=== PATIENT | male | born 1955 | race Caucasian/White ===

== ENCOUNTER 2017-03-16 00:54 | Inpatient (IN) | payer OTHER, BC ==
[2017-03-16] VITALS (10 sets, daily range): BP systolic 94–134; BP diastolic 65–84; PULSE 64–102; RESP 12–24; TEMP 97.6–98.8; O2SAT 91–99
[~2017-03-16] VITALS: Ht 170.2 cm; Wt 94.0 kg
[2017-03-16] MEDS ORDERED: ceFAZolin INJ 1,000 MG VIAL ONE (01:03)
[2017-03-16] MEDS ORDERED: DIPHTH/TETANUS/ACEL PERTUSSIS (BOOSTER) 0.5 ML VIAL/PFS IM ONE ×2 (01:03→01:23)
[2017-03-16] MEDS ORDERED: ceFAZolin 2 GM PREMIX 50 ML ONE (01:04)
[2017-03-16 01:22] LABS: AUTOMATED NEUTROPHIL # 10.3 TH/MM3 (1.8-7.7); BASOPHIL # 0.1 TH/MM3 (0-0.2); BASOPHIL % 0.7 % (0.0-2.0); EOSINOPHIL # 0.2 TH/MM3 (0-0.4); EOSINOPHIL % 1.5 % (0.0-4.0); HEMATOCRIT 43.7 % (39.0-51.0); HEMO FLAGS DIFF FINAL; LYMPHOCYTE # 2.9 TH/MM3 (1.0-4.8); MEAN CELL VOLUME 93.9 FL (80.0-100.0); MEAN CORPUSCULAR HEMOGLOBIN 30.9 PG (27.0-34.0); MEAN CORPUSCULAR HGB CONC 32.9 % (32.0-36.0); MONO % 6.2 % (0.0-8.0); NEUT % 71.6 % (16.0-70.0); PLATELET COUNT 267 TH/MM3 (150-450); RED BLOOD COUNT 4.65 MIL/MM3 (4.50-5.90); RED CELL DISTRIBUTION WIDTH 13.3 % (11.6-17.2); WHITE BLOOD COUNT 14.4 TH/MM3 (4.0-11.0)
[2017-03-16] MEDS ORDERED: ceFAZolin 2 GM PREMIX 50 ML IV STA (01:23)
[2017-03-16 01:25] LABS: I-STAT POTASSIUM 4.3 MMOL/L (3.5-4.9); I-STAT SODIUM 137 MMOL/L (138-146)
[2017-03-16] MEDS ORDERED: SODIUM CHLOR 0.9% 1000 ML INJ 1,000 ML IV ONE (01:30)
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
[2017-03-16 01:40] LABS: ALT (GPT) 118 U/L (12-78); ANION GAP 9 MEQ/L (5-15); AST (GOT) 145 U/L (15-37); BICARBONATE 23.7 MEQ/L (21.0-32.0); BLOOD UREA NITROGEN 20 MG/DL (7-18); CHLORIDE 103 MEQ/L (98-107); GLOMERULAR FILTRATION RATE 45 ML/MIN (>89); POTASSIUM 4.1 MEQ/L (3.5-5.1); SODIUM (NA) 136 MEQ/L (136-145)
[2017-03-16 01:43] LABS: ALKALINE PHOSPHATASE 60 U/L (45-117); TOTAL BILIRUBIN ADULT 0.4 MG/DL (0.2-1.0)
[2017-03-16 01:44] LABS: ALCOHOL 242 MG/DL (0-5)
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
[2017-03-16] MEDS ORDERED: ENALAPRILAT 1.25 MG/ML VIAL IV PUSH PRN (01:45)
[2017-03-16] MEDS ORDERED: ONDANSETRON HCL 4 MG/2 ML VIAL IV PUSH PRN ×2 (01:45→02:30)
[2017-03-16] MEDS ORDERED: SODIUM CHLORIDE 0.9% FLUSH 10 ML FLUSH IV FLUSH PRN (01:45)
[2017-03-16] MEDS ORDERED: ACETAMINOPHEN/HYDROcodone 325 MG/5 MG TAB PO PRN (01:45)
[2017-03-16] MEDS ORDERED: CHLORHEXIDINE GLUCONATE 2 % 1 PACK (2 CLOTHS) TOP PRN ×2 (01:45→02:30)
[2017-03-16] MEDS ORDERED: MISCELLANEOUS NURSING INFORMATION XX SCH ×2 (01:45→02:30)
[2017-03-16 01:46] LABS: APTT (PATIENT) 20.1 SEC (24.3-30.1); PROTHROMBIN TIME - PATIENT 10.9 SEC (9.8-11.6)
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
[2017-03-16] MEDS ORDERED: SODIUM CHLOR 0.9% 1000 ML INJ 1,000 ML IV SCH (02:00)
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
[2017-03-16] MEDS: SODIUM CHLOR 0.9% 1000 ML INJ 1,000 ML IV SCH ×2 (02:27→14:22)
[2017-03-16] MEDS ORDERED: SENNOSIDES 8.6 MG TAB PO PRN (02:30)
[2017-03-16] MEDS ORDERED: ACETAMINOPHEN 325 MG TAB PO PRN (02:30)
[2017-03-16] MEDS ORDERED: LACTULOSE SYRUP 20 GM/30 ML CUP PO PRN (02:30)
[2017-03-16] MEDS ORDERED: MORPHINE SULFATE 4 MG/ML INJ IV PUSH ONE (02:30)
[2017-03-16] MEDS ORDERED: MORPHINE SULFATE 4 MG/ML INJ IM ONE (02:30)
[2017-03-16] MEDS ORDERED: MAGNESIUM HYDROXIDE SUSP 30 ML CUP PO PRN (02:30)
[2017-03-16] MEDS: HYDROmorphone HCL PF 1 MG/ML VIAL IVP PRN (02:30)
[2017-03-16] MEDS ORDERED: BISACODYL 10 MG SUPP RECTAL PRN (02:30)
[2017-03-16] MEDS ORDERED: SODIUM CHLORIDE 0.9% FLUSH 10 ML FLUSH PRN (02:30)
[2017-03-16] MEDS ORDERED: LORazepam 2 MG/ML VIAL IV PUSH PRN ×4 (02:45)
[2017-03-16] MEDS ORDERED: LORazepam 1 MG TAB PO PRN (02:45)
[2017-03-16] MEDS ORDERED: FLUMAZENIL 0.5 MG/5 ML VIAL IV PUSH PRN (02:45)
[2017-03-16 03:17] LABS: CKMB 7.5 NG/ML (0.5-3.6)
[2017-03-16] MEDS ORDERED: CHLORHEXIDINE GLUCONATE 2 % 1 PACK (2 CLOTHS) TOP SCH (04:00)
[2017-03-16] MEDS: CHLORHEXIDINE GLUCONATE 2 % 1 PACK (2 CLOTHS) TOP SCH (04:00)
[2017-03-16] MEDS: MORPHINE SULFATE 4 MG/ML INJ IV PUSH PRN ×4 (04:12→23:09)
[2017-03-16] MEDS ORDERED: MULTIVITAMIN INJ 10 ML, THIAMINE INJ 100 MG, FOLIC ACID INJ 1 MG in SODIUM CHLORID 0.9%... IV SCH (04:45)
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
[2017-03-16] MEDS: MULTIVITAMIN INJ 10 ML, THIAMINE INJ 100 MG, FOLIC ACID INJ 1 MG in SODIUM CHLORID 0.9%... IV SCH (06:15)
[2017-03-16] MEDS: METHOCARBAMOL 500 MG TAB PO SCH ×3 (07:00→20:43)
[2017-03-16] MEDS: FAMOTIDINE 20 MG/2 ML VIAL IV PUSH SCH ×2 (08:29→20:42)
[2017-03-16] MEDS: LIDOCAINE HCL 5% PATCH T-DERMAL SCH (08:32)
[2017-03-16] MEDS: ACETAMINOPHEN 1000 MG/100 ML VIAL IV SCH ×3 (08:32→20:51)
[2017-03-16] MEDS: SODIUM CHLORIDE 0.9% FLUSH 10 ML FLUSH SCH ×2 (08:58→20:42)
[2017-03-16] MEDS: PANTOPRAZOLE SODIUM 40 MG VIAL IVP SCH (09:00)
[2017-03-16] MEDS: DOCUSATE SODIUM 50 MG/SENNA 8.6 MG TAB PO SCH ×2 (09:00→20:43)
[2017-03-16] MEDS: BACITRACIN TOP OINT 15 GM TUBE TOPICAL SCH ×2 (09:45→23:19)
[2017-03-16] MEDS: ACETAMINOPHEN/HYDROcodone 325 MG/5 MG TAB PO PRN ×2 (12:26→20:43)
[2017-03-16] MEDS: LORazepam 2 MG TAB PO PRN ×2 (12:26→12:27)
[2017-03-16] MEDS ORDERED: IOHEXOL 350 MG/ML 10 ML VIAL (for RAD DIAG) IVCONTRAST ONE ×2 (13:31→22:56)
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
--- NOTE | 2017-03-16 14:32 | EKG ---
Date Performed: 03/16/2017 Time Performed: 10:21:13 PTAGE: 61 years EKG: Sinus rhythm RIGHT BUNDLE BRANCH BLOCK ABNORMAL ECG NO PREVIOUS TRACING DOCTOR: Daron Nunes Interpretating Date/Time 03/16/2017 14:31:24
[2017-03-16] MEDS: REMOVE OLD LIDOCAINE PATCH T-DERMAL SCH (20:51)
--- NOTE | 2017-03-16 23:10 | RADRPT ---
EXAM DATE/TIME: 03/16/2017 22:46 [facility] COMPARISON: CT ABDOMEN & PELVIS W CONTRAST, March 16, 2017, 1:15. INDICATIONS : Evaluate for ruptured bladder. IV CONTRAST: 30 cc Omnipaque 350 (iohexol) IV ORAL CONTRAST: No oral contrast ingested. RADIATION DOSE: 26.62 CTDIvol (mGy) ; Patient body habitus MEDICAL HISTORY : Cardiovascular disease. Hypertension. SURGICAL HISTORY : None. ENCOUNTER: Subsequent ACUITY: 1 day PAIN SCALE: 0/10 LOCATION: pelvis TECHNIQUE: Volumetric scanning of the pelvis was performed. Using automated exposure control and adjustment of t he mA and/or kV according to patient size, radiation dose was kept as low as reasonably achievable to obtain optimal diagnostic quality images. DICOM format image data is available electronically for review and comparison. FINDINGS: There is an indwelling Fodr. Iodinated contrast was administered into the bladder retrograde. There is a anterior/superior perforation noted of the urinary bladder, slightly right of midline. Most of t he contrast leaks retroperitoneal but a small amount is also seen intraperitoneal. CONCLUSION: Focal rupture anteriorly/superiorly of the urinary bladder with intraperitoneal and retroperitoneal l gardenia. Aleksandr Garcia MD on March 16, 2017 at 23:03 Board Certified Radiologist. This report was verified electronically.
[2017-03-17] VITALS (11 sets, daily range): BP systolic 132–153; BP diastolic 70–86; PULSE 88–107; RESP 18–28; TEMP 98.5–98.9; O2SAT 93–100
[2017-03-17] MEDS: ACETAMINOPHEN 1000 MG/100 ML VIAL IV SCH (01:00)
[2017-03-17] MEDS: SODIUM CHLOR 0.9% 1000 ML INJ 1,000 ML IV SCH ×2 (02:17→14:12)
[2017-03-17] MEDS: CHLORHEXIDINE GLUCONATE 2 % 1 PACK (2 CLOTHS) TOP SCH (04:00)
[2017-03-17 05:27] LABS: AUTOMATED NEUTROPHIL # 6.8 TH/MM3 (1.8-7.7); BASOPHIL % 0.5 % (0.0-2.0); EOSINOPHIL % 0.1 % (0.0-4.0); HEMATOCRIT 32.4 % (39.0-51.0); HEMO FLAGS DIFF FINAL; LYMPH % 13.7 % (9.0-44.0); LYMPHOCYTE # 1.3 TH/MM3 (1.0-4.8); MEAN CELL VOLUME 93.4 FL (80.0-100.0); MEAN CORPUSCULAR HEMOGLOBIN 32.4 PG (27.0-34.0); MEAN CORPUSCULAR HGB CONC 34.6 % (32.0-36.0); MONO % 12.5 % (0.0-8.0); NEUT % 73.2 % (16.0-70.0); PLATELET COUNT 163 TH/MM3 (150-450); RED BLOOD COUNT 3.47 MIL/MM3 (4.50-5.90); RED CELL DISTRIBUTION WIDTH 13.1 % (11.6-17.2); WHITE BLOOD COUNT 9.3 TH/MM3 (4.0-11.0)
[2017-03-17 05:31] LABS: PROTHROMBIN TIME - PATIENT 10.5 SEC (9.8-11.6)
[2017-03-17] MEDS: MULTIVITAMIN INJ 10 ML, THIAMINE INJ 100 MG, FOLIC ACID INJ 1 MG in SODIUM CHLORID 0.9%... IV SCH (05:31)
[2017-03-17] MEDS: METHOCARBAMOL 500 MG TAB PO SCH ×3 (05:33→21:18)
[2017-03-17] MEDS: ACETAMINOPHEN/HYDROcodone 325 MG/5 MG TAB PO PRN (05:34)
[2017-03-17 05:55] LABS: ALKALINE PHOSPHATASE 45 U/L (45-117); ALT (GPT) 80 U/L (12-78); ANION GAP 5 MEQ/L (5-15); AST (GOT) 113 U/L (15-37); BICARBONATE 24.3 MEQ/L (21.0-32.0); BLOOD UREA NITROGEN 21 MG/DL (7-18); CHLORIDE 106 MEQ/L (98-107); GLOMERULAR FILTRATION RATE 73 ML/MIN (>89); MAGNESIUM 2.4 MG/DL (1.5-2.5); POTASSIUM 4.7 MEQ/L (3.5-5.1); SODIUM (NA) 135 MEQ/L (136-145); TOTAL BILIRUBIN ADULT 1.3 MG/DL (0.2-1.0)
--- NOTE | 2017-03-17 06:52 | RADRPT ---
EXAM DATE/TIME: 03/17/2017 06:05 [facility] COMPARISON: CHEST SINGLE AP, March 16, 2017, 4:04. INDICATIONS : Short of breath. MEDICAL HISTORY : None. SURGICAL HISTORY : None. ENCOUNTER: Subsequent ACUITY: 3 days PAIN SCORE: Non-responsive. LOCATION: Bilateral chest FINDINGS: A single view of the chest demonstrates basilar and dependent atelectasis in the lungs. Small effusio ns. Cardiomegaly. Tortuous aorta. CONCLUSION: 1. Slight improvement in right-sided airspace disease since March 16. Small effusions. Marcos Bhakta MD on March 17, 2017 at 6:50 Board Certified Radiologist. This report was verified electronically.
[2017-03-17] MEDS: PANTOPRAZOLE SODIUM 40 MG VIAL IVP SCH (08:25)
[2017-03-17] MEDS: FAMOTIDINE 20 MG/2 ML VIAL IV PUSH SCH (08:25)
[2017-03-17] MEDS: LIDOCAINE HCL 5% PATCH T-DERMAL SCH (08:25)
[2017-03-17] MEDS: SODIUM CHLORIDE 0.9% FLUSH 10 ML FLUSH SCH ×2 (08:25→21:00)
[2017-03-17] MEDS: BACITRACIN TOP OINT 15 GM TUBE TOPICAL SCH ×2 (08:25→21:00)
[2017-03-17] MEDS: DOCUSATE SODIUM 50 MG/SENNA 8.6 MG TAB PO SCH ×2 (08:25→21:18)
[2017-03-17] MEDS: REMOVE OLD LIDOCAINE PATCH T-DERMAL SCH (08:30)
[2017-03-17] MEDS: MORPHINE SULFATE 4 MG/ML INJ IV PUSH PRN (09:21)
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
[2017-03-17] MEDS ORDERED: diphenhydrAMINE HCL 50 MG/ML VIAL IV PUSH PRN (09:45)
[2017-03-17] MEDS ORDERED: NALOXONE HCL 0.4 MG/ML AMP IV PUSH PRN (09:45)
[2017-03-17] MEDS: DULoxetine HCl DR 30 MG CAP PO SCH ×2 (10:38→21:18)
[2017-03-17] MEDS: MAGNESIUM SULFATE 1 GM PREMIX 100 ML IV SCH ×2 (10:38→12:50)
[2017-03-17] MEDS: METOPROLOL TARTRATE 50 MG TAB PO SCH ×2 (10:38→21:18)
[2017-03-17] MEDS: HYDROmorphone HCL PCA 6 MG/30 ML IV SCH (11:17)
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
[2017-03-17] MEDS: PCA - TOTAL MG DILAUDID DELIVERED PER SHIFT OTHER SCH (18:00)
[2017-03-17] MEDS: ENOXAPARIN SODIUM 30 MG/0.3 ML SYRINGE SQ SCH (21:19)
[2017-03-18] VITALS (11 sets, daily range): BP systolic 129–157; BP diastolic 78–92; PULSE 75–106; RESP 17–25; TEMP 97.6–98.7; O2SAT 93–97
[2017-03-18] MEDS: SODIUM CHLOR 0.9% 1000 ML INJ 1,000 ML IV SCH ×2 (02:07→10:47)
[2017-03-18] MEDS: CHLORHEXIDINE GLUCONATE 2 % 1 PACK (2 CLOTHS) TOP SCH (04:00)
[2017-03-18] MEDS: METHOCARBAMOL 500 MG TAB PO SCH ×3 (05:20→20:28)
[2017-03-18 05:30] LABS: AUTOMATED NEUTROPHIL # 7.3 TH/MM3 (1.8-7.7); BASOPHIL % 0.5 % (0.0-2.0); EOSINOPHIL % 0.3 % (0.0-4.0); HEMATOCRIT 32.1 % (39.0-51.0); HEMO FLAGS DIFF FINAL; LYMPH % 9.3 % (9.0-44.0); LYMPHOCYTE # 0.8 TH/MM3 (1.0-4.8); MEAN CELL VOLUME 94.8 FL (80.0-100.0); MEAN CORPUSCULAR HEMOGLOBIN 31.7 PG (27.0-34.0); MEAN CORPUSCULAR HGB CONC 33.4 % (32.0-36.0); MONO % 9.6 % (0.0-8.0); NEUT % 80.3 % (16.0-70.0); PLATELET COUNT 157 TH/MM3 (150-450); RED BLOOD COUNT 3.38 MIL/MM3 (4.50-5.90); RED CELL DISTRIBUTION WIDTH 12.9 % (11.6-17.2)
[2017-03-18 05:34] LABS: ANION GAP 7 MEQ/L (5-15); AST (GOT) 81 U/L (15-37); BICARBONATE 24.3 MEQ/L (21.0-32.0); BLOOD UREA NITROGEN 19 MG/DL (7-18); CHLORIDE 105 MEQ/L (98-107); GLOMERULAR FILTRATION RATE 100 ML/MIN (>89); MAGNESIUM 2.3 MG/DL (1.5-2.5); POTASSIUM 4.5 MEQ/L (3.5-5.1); SODIUM (NA) 136 MEQ/L (136-145)
[2017-03-18 05:35] LABS: ALT (GPT) 68 U/L (12-78)
[2017-03-18 05:37] LABS: ALKALINE PHOSPHATASE 43 U/L (45-117); TOTAL BILIRUBIN ADULT 0.8 MG/DL (0.2-1.0)
[2017-03-18] MEDS: PCA - TOTAL MG DILAUDID DELIVERED PER SHIFT OTHER SCH ×2 (06:00→18:00)
--- NOTE | 2017-03-18 06:21 | RADRPT ---
EXAM DATE/TIME: 03/18/2017 05:20 [facility] COMPARISON: CHEST SINGLE AP, March 17, 2017, 6:05. INDICATIONS : Short of breath. MEDICAL HISTORY : None. SURGICAL HISTORY : None. ENCOUNTER: Subsequent ACUITY: 3 days PAIN SCORE: Non-responsive. LOCATION: Bilateral chest FINDINGS: A single view of the chest demonstrates cardiomegaly. Small right effusion. Basilar airspace disease, right greater than left. No pneumothorax. CONCLUSION: 1. Cardiomegaly. Slight increase in basilar airspace disease and [facility] Marcos Bhakta MD on March 18, 2017 at 6:19 Board Certified Radiologist. This report was verified electronically.
[2017-03-18] MEDS: MULTIVITAMIN INJ 10 ML, THIAMINE INJ 100 MG, FOLIC ACID INJ 1 MG in SODIUM CHLORID 0.9%... IV SCH (06:38)
[2017-03-18] MEDS: LIDOCAINE HCL 5% PATCH T-DERMAL SCH (08:17)
[2017-03-18] MEDS: PANTOPRAZOLE SODIUM 40 MG VIAL IVP SCH (08:17)
[2017-03-18] MEDS: METOPROLOL TARTRATE 50 MG TAB PO SCH ×2 (08:17→20:28)
[2017-03-18] MEDS: DOCUSATE SODIUM 50 MG/SENNA 8.6 MG TAB PO SCH ×2 (08:17→20:28)
[2017-03-18] MEDS: ENOXAPARIN SODIUM 30 MG/0.3 ML SYRINGE SQ SCH ×2 (08:17→20:28)
[2017-03-18] MEDS: BACITRACIN TOP OINT 15 GM TUBE TOPICAL SCH ×2 (08:17→21:00)
[2017-03-18] MEDS: DULoxetine HCl DR 30 MG CAP PO SCH ×2 (08:17→20:28)
[2017-03-18] MEDS: SODIUM CHLORIDE 0.9% FLUSH 10 ML FLUSH SCH ×2 (08:18→20:28)
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
[2017-03-18] MEDS: HYDROmorphone HCL PCA 6 MG/30 ML IV SCH (18:30)
[2017-03-18] MEDS: REMOVE OLD LIDOCAINE PATCH T-DERMAL SCH (21:00)
[2017-03-19] VITALS (11 sets, daily range): BP systolic 124–150; BP diastolic 77–88; PULSE 90–102; RESP 18–26; TEMP 97.9–98.8; O2SAT 94–98
[2017-03-19] MEDS: CHLORHEXIDINE GLUCONATE 2 % 1 PACK (2 CLOTHS) TOP SCH (04:00)
--- NOTE | 2017-03-19 05:36 | RADRPT ---
EXAM DATE/TIME: 03/19/2017 03:52 [facility] COMPARISON: CHEST SINGLE AP, March 18, 2017, 5:20. INDICATIONS : Follow up rib fracture. MEDICAL HISTORY : None. SURGICAL HISTORY : None. ENCOUNTER: Subsequent ACUITY: 4 - 6 days PAIN SCORE: 0/10 LOCATION: Bilateral chest FINDINGS: A single view of the chest demonstrates basilar airspace disease, right greater the left with effusio ns, right greater than left. Findings similar to March 18. Cardiomegaly. Tortuous aorta. No pneum othorax. CONCLUSION: Basilar airspace disease and pleural effusions, right greater than left similar to March 18. Marcos Bhakta MD on March 19, 2017 at 5:34 Board Certified Radiologist. This report was verified electronically.
[2017-03-19] MEDS: METHOCARBAMOL 500 MG TAB PO SCH ×3 (05:37→22:02)
[2017-03-19] MEDS: PCA - TOTAL MG DILAUDID DELIVERED PER SHIFT OTHER SCH ×3 (06:00→22:00)
[2017-03-19 06:31] LABS: AUTOMATED NEUTROPHIL # 7.8 TH/MM3 (1.8-7.7); BASOPHIL % 0.2 % (0.0-2.0); EOSINOPHIL % 0.1 % (0.0-4.0); HEMATOCRIT 27.8 % (39.0-51.0); HEMO FLAGS DIFF FINAL; LYMPH % 6.4 % (9.0-44.0); LYMPHOCYTE # 0.6 TH/MM3 (1.0-4.8); MEAN CELL VOLUME 92.9 FL (80.0-100.0); MEAN CORPUSCULAR HEMOGLOBIN 32.8 PG (27.0-34.0); MEAN CORPUSCULAR HGB CONC 35.3 % (32.0-36.0); MONO % 9.1 % (0.0-8.0); NEUT % 84.2 % (16.0-70.0); PLATELET COUNT 187 TH/MM3 (150-450); RED BLOOD COUNT 2.99 MIL/MM3 (4.50-5.90); RED CELL DISTRIBUTION WIDTH 12.7 % (11.6-17.2); WHITE BLOOD COUNT 9.2 TH/MM3 (4.0-11.0)
[2017-03-19 07:03] LABS: ALT (GPT) 63 U/L (12-78); ANION GAP 5 MEQ/L (5-15); AST (GOT) 74 U/L (15-37); BICARBONATE 25.7 MEQ/L (21.0-32.0); BLOOD UREA NITROGEN 25 MG/DL (7-18); CHLORIDE 105 MEQ/L (98-107); GLOMERULAR FILTRATION RATE 119 ML/MIN (>89); POTASSIUM 4.4 MEQ/L (3.5-5.1); SODIUM (NA) 136 MEQ/L (136-145)
[2017-03-19 07:06] LABS: ALKALINE PHOSPHATASE 41 U/L (45-117)
[2017-03-19] MEDS: SODIUM CHLORIDE 0.9% FLUSH 10 ML FLUSH SCH ×2 (08:21→21:00)
[2017-03-19] MEDS: DOCUSATE SODIUM 50 MG/SENNA 8.6 MG TAB PO SCH ×2 (08:22→22:02)
[2017-03-19] MEDS: METOPROLOL TARTRATE 50 MG TAB PO SCH ×3 (08:22→22:02)
[2017-03-19] MEDS: DULoxetine HCl DR 30 MG CAP PO SCH ×2 (08:22→22:02)
[2017-03-19] MEDS: PANTOPRAZOLE SODIUM 40 MG VIAL IVP SCH (08:22)
[2017-03-19] MEDS: ENOXAPARIN SODIUM 30 MG/0.3 ML SYRINGE SQ SCH ×2 (08:23→22:02)
[2017-03-19] MEDS: BACITRACIN TOP OINT 15 GM TUBE TOPICAL SCH ×2 (08:23→21:00)
[2017-03-19] MEDS: LACTULOSE SYRUP 20 GM/30 ML CUP PO SCH (09:00)
[2017-03-19] MEDS: LIDOCAINE HCL 5% PATCH T-DERMAL SCH (09:31)
[2017-03-19] MEDS: MAGNESIUM HYDROXIDE SUSP 30 ML CUP PO SCH ×2 (09:31→22:02)
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
[2017-03-19] MEDS: chlordiazePOXIDE 25 MG CAP PO PRN (13:44)
[2017-03-19] MEDS: SODIUM CHLOR 0.9% 1000 ML INJ 1,000 ML IV SCH (19:11)
--- NOTE | 2017-03-19 19:30 | RADRPT ---
EXAM DATE/TIME: 03/19/2017 16:32 [facility] COMPARISON: No previous studies available for comparison. INDICATIONS : Bruit. MEDICAL HISTORY : Hypertension. Aortic valve stenosis. SURGICAL HISTORY : None. ENCOUNTER: Initial ACUITY: 1 day PAIN SCORE: 0/10 LOCATION: Bilateral neck PEAK SYSTOLIC VELOCITIES (cm/sec): ICA/CCA RATIO: Right: 1.7 Left: 0.9 ICA: Right: 95 Left: 93 CCA: Right: 56 Left: 99 ECA: Right: 107 Left: 103 VERTEBRAL: Right: 55 antegrade Left: 40 antegrade Elevated flow velocities and ICA/CCA ratios have been found to correlate with increased degrees of vessel stenosis, calculated as percentage of diameter relative to a normal segment of distal ICA/CCA FINDINGS: RIGHT CAROTID: No significant stenosis is visualized. The waveforms are within normal limits. LEFT CAROTID: No significant stenosis is visualized. The waveforms are within normal limits. VERTEBRAL ARTERIES: Antegrade flow is seen in both vertebral arteries. CONCLUSION: Normal hemodynamic profile both carotids. Montana Garcia MD on March 19, 2017 at 19:28 Board Certified Radiologist. This report was verified electronically.
[2017-03-19] MEDS: REMOVE OLD LIDOCAINE PATCH T-DERMAL SCH (21:00)
[2017-03-20] VITALS (13 sets, daily range): BP systolic 115–138; BP diastolic 73–89; PULSE 80–114; RESP 19–29; TEMP 98.2–99; O2SAT 93–97
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
[2017-03-20] MEDS: METHOCARBAMOL 500 MG TAB PO SCH ×3 (06:00→21:29)
[2017-03-20] MEDS: PCA - TOTAL MG DILAUDID DELIVERED PER SHIFT OTHER SCH (06:00)
[2017-03-20] MEDS: METOPROLOL TARTRATE 50 MG TAB PO SCH ×3 (06:00→21:29)
[2017-03-20] MEDS ORDERED: BISACODYL EC 5 MG TABEC PO ONE (08:15)
[2017-03-20] MEDS ORDERED: BISACODYL 10 MG SUPP RECTAL ONE (08:15)
[2017-03-20] MEDS: ENOXAPARIN SODIUM 30 MG/0.3 ML SYRINGE SQ SCH ×2 (08:16→20:36)
[2017-03-20] MEDS: PANTOPRAZOLE SODIUM 40 MG VIAL IVP SCH (08:16)
[2017-03-20] MEDS: MAGNESIUM HYDROXIDE SUSP 30 ML CUP PO SCH ×2 (08:17→20:36)
[2017-03-20] MEDS: DOCUSATE SODIUM 50 MG/SENNA 8.6 MG TAB PO SCH ×2 (08:17→20:36)
[2017-03-20] MEDS: DULoxetine HCl DR 30 MG CAP PO SCH ×2 (08:17→21:29)
[2017-03-20] MEDS: LACTULOSE SYRUP 20 GM/30 ML CUP PO SCH (08:17)
[2017-03-20] MEDS: LIDOCAINE HCL 5% PATCH T-DERMAL SCH (08:18)
[2017-03-20] MEDS: BACITRACIN TOP OINT 15 GM TUBE TOPICAL SCH ×2 (09:00→20:40)
[2017-03-20] MEDS: SODIUM CHLORIDE 0.9% FLUSH 10 ML FLUSH SCH ×2 (09:00→20:35)
[2017-03-20 09:01] LABS: AUTOMATED NEUTROPHIL # 6.5 TH/MM3 (1.8-7.7); BASOPHIL % 0.4 % (0.0-2.0); EOSINOPHIL # 0.1 TH/MM3 (0-0.4); EOSINOPHIL % 1.1 % (0.0-4.0); HEMO FLAGS DIFF FINAL; LYMPH % 12.9 % (9.0-44.0); LYMPHOCYTE # 1.1 TH/MM3 (1.0-4.8); MEAN CELL VOLUME 94.2 FL (80.0-100.0); MEAN CORPUSCULAR HEMOGLOBIN 32.6 PG (27.0-34.0); MEAN CORPUSCULAR HGB CONC 34.6 % (32.0-36.0); MONO % 12.1 % (0.0-8.0); NEUT % 73.5 % (16.0-70.0); PLATELET COUNT 204 TH/MM3 (150-450); RED BLOOD COUNT 2.87 MIL/MM3 (4.50-5.90); WHITE BLOOD COUNT 8.8 TH/MM3 (4.0-11.0)
[2017-03-20 09:16] LABS: ANION GAP 6 MEQ/L (5-15); AST (GOT) 74 U/L (15-37); BICARBONATE 27.3 MEQ/L (21.0-32.0); BLOOD UREA NITROGEN 25 MG/DL (7-18); CHLORIDE 103 MEQ/L (98-107); GLOMERULAR FILTRATION RATE 98 ML/MIN (>89); POTASSIUM 4.5 MEQ/L (3.5-5.1); SODIUM (NA) 136 MEQ/L (136-145)
[2017-03-20 09:17] LABS: ALT (GPT) 63 U/L (12-78)
[2017-03-20 09:19] LABS: ALKALINE PHOSPHATASE 40 U/L (45-117); TOTAL BILIRUBIN ADULT 1.1 MG/DL (0.2-1.0)
[2017-03-20] MEDS ORDERED: ACETAMINOPHEN/HYDROcodone 325 MG/10 MG TAB PO PRN (10:15)
[2017-03-20] MEDS ORDERED: IOHEXOL 350 MG/ML 10 ML VIAL (for RAD DIAG) IVCONTRAST ONE (12:04)
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
[2017-03-20] MEDS: ACETAMINOPHEN/HYDROcodone 325 MG/5 MG TAB PO PRN (13:00)
[2017-03-20] MEDS ORDERED: LIDOCAINE HCL 1% 50 ML VIAL ONE (13:15)
[2017-03-20] MEDS: HYDROmorphone HCL PF 1 MG/ML VIAL IVP PRN (13:57)
[2017-03-20] MEDS ORDERED: METOPROLOL TARTRATE 5 MG/5 ML VIAL ONE (14:14)
[2017-03-20] MEDS ORDERED: METOPROLOL TARTRATE 5 MG/5 ML VIAL IV PUSH STA (14:20)
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
--- NOTE | 2017-03-20 15:06 | RADRPT ---
EXAM DATE/TIME: 03/20/2017 13:53 [facility] COMPARISON: CHEST SINGLE AP, March 20, 2017, 3:47. INDICATIONS : Evaluate for pneumothorax, post chest tube placement. MEDICAL HISTORY : Cardiovascular disease. Hypertension SURGICAL HISTORY : None. ENCOUNTER: Subsequent ACUITY: 1 day PAIN SCORE: 5/10 LOCATION: Right chest FINDINGS: A single view of the chest demonstrates interval placement of right-sided chest tube with marked impr ovement in the appearance of the right thoracic cavity. Large left pleural effusion. Small infiltrate or effusion remains on the left. Aorta is tortuous. Remains enlarged.. Osseous structures are intac t. CONCLUSION: New chest tube on the right with a much smaller pleural effusion. No pneumothorax. Van Johansen MD on March 20, 2017 at 15:03 Board Certified Radiologist. This report was verified electronically.
[2017-03-20] MEDS ORDERED: METOPROLOL TARTRATE 5 MG/5 ML VIAL IV PUSH ONE (15:15)
[2017-03-20] MEDS ORDERED: HYDROmorphone HCL PF 1 MG/ML VIAL IV ONE (16:00)
[2017-03-20] MEDS: RESP: ALBUTEROL 2.5 MG/IPRATROPIUM 0.5 MG NEB (PRN) INH ×2 (16:41→21:01)
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
[2017-03-20] MEDS: CHLORHEXIDINE GLUCONATE 2 % 1 PACK (2 CLOTHS) TOP SCH (20:35)
[2017-03-20] MEDS: REMOVE OLD LIDOCAINE PATCH T-DERMAL SCH (21:00)
[2017-03-20] MEDS: SODIUM CHLOR 0.9% 1000 ML INJ 1,000 ML IV SCH (21:06)
[2017-03-20 21:47] LABS: HEMATOCRIT 27.6 % (39.0-51.0); REVIEW FLAG FINAL
[2017-03-21] VITALS (12 sets, daily range): BP systolic 107–120; BP diastolic 67–81; PULSE 81–110; RESP 19–27; TEMP 98.1–99.2; O2SAT 94–100
[2017-03-21] MEDS: METOPROLOL TARTRATE 50 MG TAB PO SCH ×2 (05:50→13:54)
[2017-03-21] MEDS: METHOCARBAMOL 500 MG TAB PO SCH ×3 (05:50→21:28)
[2017-03-21 05:59] LABS: ALT (GPT) 59 U/L (12-78); ANION GAP 5 MEQ/L (5-15); AST (GOT) 54 U/L (15-37); BICARBONATE 27.1 MEQ/L (21.0-32.0); BLOOD UREA NITROGEN 24 MG/DL (7-18); CHLORIDE 103 MEQ/L (98-107); GLOMERULAR FILTRATION RATE 129 ML/MIN (>89); POTASSIUM 4.5 MEQ/L (3.5-5.1); SODIUM (NA) 135 MEQ/L (136-145)
[2017-03-21 06:01] LABS: ALKALINE PHOSPHATASE 41 U/L (45-117); TOTAL BILIRUBIN ADULT 1.1 MG/DL (0.2-1.0)
[2017-03-21 06:20] LABS: AUTOMATED NEUTROPHIL # 5.9 TH/MM3 (1.8-7.7); BASOPHIL % 0.4 % (0.0-2.0); EOSINOPHIL # 0.1 TH/MM3 (0-0.4); EOSINOPHIL % 1.1 % (0.0-4.0); HEMATOCRIT 27.4 % (39.0-51.0); HEMO FLAGS DIFF FINAL; LYMPH % 13.1 % (9.0-44.0); LYMPHOCYTE # 1.1 TH/MM3 (1.0-4.8); MEAN CELL VOLUME 93.6 FL (80.0-100.0); MEAN CORPUSCULAR HEMOGLOBIN 31.7 PG (27.0-34.0); MEAN CORPUSCULAR HGB CONC 33.9 % (32.0-36.0); NEUT % 72.4 % (16.0-70.0); PLATELET COUNT 214 TH/MM3 (150-450); RED BLOOD COUNT 2.92 MIL/MM3 (4.50-5.90); RED CELL DISTRIBUTION WIDTH 13.2 % (11.6-17.2); WHITE BLOOD COUNT 8.1 TH/MM3 (4.0-11.0)
--- NOTE | 2017-03-21 06:25 | RADRPT ---
EXAM DATE/TIME: 03/21/2017 05:09 [facility] COMPARISON: CHEST SINGLE AP, March 20, 2017, 13:53. INDICATIONS : Short of breath. MEDICAL HISTORY : Cardiovascular disease. Hypertension SURGICAL HISTORY : None. ENCOUNTER: Subsequent ACUITY: 4 - 6 days PAIN SCORE: 0/10 LOCATION: Bilateral chest FINDINGS: Trace bibasilar consolidation present, both sides considerably improved in the interim. A small left pleural effusion probably persists. Right chest tube remains in place. I don't see a pneumothorax. Mild cardiomegaly is stable. CONCLUSION: Decreasing bibasilar consolidation, now very mild. Right chest tube remains in place. No pneumothorax . Aleksandr Garcia MD on March 21, 2017 at 6:23 Board Certified Radiologist. This report was verified electronically.
[2017-03-21] MEDS: LACTULOSE SYRUP 20 GM/30 ML CUP PO SCH (09:00)
[2017-03-21] MEDS: LIDOCAINE HCL 5% PATCH T-DERMAL SCH (09:14)
[2017-03-21] MEDS: REMOVE OLD LIDOCAINE PATCH T-DERMAL SCH (09:14)
[2017-03-21] MEDS ORDERED: BISACODYL EC 5 MG TABEC PO ONE (09:15)
[2017-03-21] MEDS ORDERED: BISACODYL 10 MG SUPP RECTAL ONE (09:15)
[2017-03-21] MEDS: ACETAMINOPHEN/HYDROcodone 325 MG/5 MG TAB PO PRN (09:24)
[2017-03-21] MEDS: ENOXAPARIN SODIUM 30 MG/0.3 ML SYRINGE SQ SCH ×2 (09:26→21:28)
[2017-03-21] MEDS: PANTOPRAZOLE SODIUM 40 MG VIAL IVP SCH (09:27)
[2017-03-21] MEDS: DULoxetine HCl DR 30 MG CAP PO SCH ×2 (09:27→21:28)
[2017-03-21] MEDS: MAGNESIUM HYDROXIDE SUSP 30 ML CUP PO SCH ×2 (09:28→21:00)
[2017-03-21] MEDS: SODIUM CHLORIDE 0.9% FLUSH 10 ML FLUSH SCH ×2 (09:28→21:30)
[2017-03-21] MEDS: DOCUSATE SODIUM 50 MG/SENNA 8.6 MG TAB PO SCH ×2 (09:29→21:00)
[2017-03-21] MEDS: BACITRACIN TOP OINT 15 GM TUBE TOPICAL SCH ×2 (09:30→21:34)
[2017-03-21] MEDS: FUROSEMIDE 20 MG/2 ML VIAL IV PUSH SCH (11:45)
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
--- NOTE | 2017-03-21 19:30 | EKG ---
Date Performed: 03/20/2017 Time Performed: 20:43:32 PTAGE: 61 years EKG: Sinus tachycardia. Right bundle branch block Abnormal ECG PREVIOUS TRACING : 03/20/2017 15.08 Compared to prior tracing no significant change DOCTOR: Moise Elizalde Interpretating Date/Time 03/21/2017 19:28:43
--- NOTE | 2017-03-21 19:38 | EKG ---
Date Performed: 03/20/2017 Time Performed: 15:08:24 PTAGE: 61 years EKG: Sinus tachycardia Short OH interval IV conduction defect Possible inferior infarct - age un determined Abnormal ECG NO PREVIOUS TRACING DOCTOR: Moise Elizalde Interpretating Date/Time 03/21/2017 19:33:36
[2017-03-21] MEDS: SODIUM CHLOR 0.9% 1000 ML INJ 1,000 ML IV SCH (21:06)
[2017-03-22] VITALS (12 sets, daily range): BP systolic 106–148; BP diastolic 60–95; PULSE 80–111; RESP 16–26; TEMP 96.4–98.6; O2SAT 93–98
[2017-03-22] MEDS: CHLORHEXIDINE GLUCONATE 2 % 1 PACK (2 CLOTHS) TOP SCH (04:00)
--- NOTE | 2017-03-22 05:01 | RADRPT ---
EXAM DATE/TIME: 03/22/2017 02:59 [facility] COMPARISON: CHEST SINGLE AP, March 21, 2017, 5:09. INDICATIONS : Short of breath. MEDICAL HISTORY : Cardiovascular disease. Hypertension. SURGICAL HISTORY : None. ENCOUNTER: Subsequent ACUITY: 1 week PAIN SCORE: Non-responsive. LOCATION: Bilateral chest FINDINGS: Mild right base consolidation again seen. Right chest tube remains in place. No pneumothorax. Mild cardiomegaly is stable. CONCLUSION: No significant change. Chest tube and mild basilar consolidation on the right. No pneumothorax seen. Aleksandr Garcia MD on March 22, 2017 at 4:59 Board Certified Radiologist. This report was verified electronically.
[2017-03-22] MEDS: METHOCARBAMOL 500 MG TAB PO SCH ×3 (05:56→22:10)
[2017-03-22] MEDS: METOPROLOL TARTRATE 50 MG TAB PO SCH ×4 (05:56→17:48)
[2017-03-22 06:05] LABS: AUTOMATED NEUTROPHIL # 5.6 TH/MM3 (1.8-7.7); BASOPHIL % 0.5 % (0.0-2.0); EOSINOPHIL # 0.2 TH/MM3 (0-0.4); EOSINOPHIL % 2.8 % (0.0-4.0); HEMATOCRIT 26.2 % (39.0-51.0); LYMPH % 12.6 % (9.0-44.0); MEAN CELL VOLUME 92.7 FL (80.0-100.0); MEAN CORPUSCULAR HEMOGLOBIN 32.2 PG (27.0-34.0); MEAN CORPUSCULAR HGB CONC 34.7 % (32.0-36.0); MONO % 11.6 % (0.0-8.0); NEUT % 72.5 % (16.0-70.0); PLATELET COUNT 249 TH/MM3 (150-450); RED BLOOD COUNT 2.83 MIL/MM3 (4.50-5.90); RED CELL DISTRIBUTION WIDTH 13.1 % (11.6-17.2); WHITE BLOOD COUNT 7.8 TH/MM3 (4.0-11.0)
[2017-03-22 06:28] LABS: HEMO FLAGS AUTO DIFF
[2017-03-22 06:39] LABS: ANION GAP 4 MEQ/L (5-15); AST (GOT) 45 U/L (15-37); BICARBONATE 29.8 MEQ/L (21.0-32.0); BLOOD UREA NITROGEN 23 MG/DL (7-18); CHLORIDE 102 MEQ/L (98-107); GLOMERULAR FILTRATION RATE 111 ML/MIN (>89); POTASSIUM 3.9 MEQ/L (3.5-5.1); SODIUM (NA) 136 MEQ/L (136-145)
[2017-03-22 06:43] LABS: ALKALINE PHOSPHATASE 44 U/L (45-117); ALT (GPT) 55 U/L (12-78); TOTAL BILIRUBIN ADULT 1.1 MG/DL (0.2-1.0)
[2017-03-22] MEDS: BACITRACIN TOP OINT 15 GM TUBE TOPICAL SCH ×2 (08:03→22:15)
[2017-03-22] MEDS: SODIUM CHLORIDE 0.9% FLUSH 10 ML FLUSH SCH ×2 (08:03→22:14)
[2017-03-22 08:11] LABS: SCAN/DIFF AUTO DIFF CONFIRMED
[2017-03-22] MEDS: ENOXAPARIN SODIUM 30 MG/0.3 ML SYRINGE SQ SCH ×2 (08:49→22:12)
[2017-03-22] MEDS: LIDOCAINE HCL 5% PATCH T-DERMAL SCH (08:49)
[2017-03-22] MEDS: DOCUSATE SODIUM 50 MG/SENNA 8.6 MG TAB PO SCH ×2 (08:50→22:10)
[2017-03-22] MEDS: FUROSEMIDE 20 MG/2 ML VIAL IV PUSH SCH (08:50)
[2017-03-22] MEDS: LACTULOSE SYRUP 20 GM/30 ML CUP PO SCH (08:50)
[2017-03-22] MEDS: DULoxetine HCl DR 30 MG CAP PO SCH ×2 (08:50→22:10)
[2017-03-22] MEDS: POLYETHYLENE GLYCOL 17 GM PKG PO SCH (08:50)
[2017-03-22] MEDS: FAMOTIDINE 20 MG TAB PO SCH ×2 (08:50→22:10)
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
[2017-03-22] MEDS: REMOVE OLD LIDOCAINE PATCH T-DERMAL SCH (21:00)
[2017-03-22] MEDS: SODIUM CHLOR 0.9% 1000 ML INJ 1,000 ML IV SCH (21:06)
[2017-03-23] VITALS (8 sets, daily range): BP systolic 107–141; BP diastolic 70–90; PULSE 82–107; RESP 17–18; TEMP 95.4–98.6; O2SAT 92–100
[2017-03-23] MEDS: METOPROLOL TARTRATE 50 MG TAB PO SCH ×4 (00:18→18:12)
[2017-03-23] MEDS: CHLORHEXIDINE GLUCONATE 2 % 1 PACK (2 CLOTHS) TOP SCH ×2 (03:18→21:26)
[2017-03-23 03:58] LABS: AUTOMATED NEUTROPHIL # 5.3 TH/MM3 (1.8-7.7); BASOPHIL # 0.1 TH/MM3 (0-0.2); BASOPHIL % 0.8 % (0.0-2.0); EOSINOPHIL # 0.3 TH/MM3 (0-0.4); EOSINOPHIL % 4.2 % (0.0-4.0); HEMATOCRIT 26.9 % (39.0-51.0); LYMPH % 11.8 % (9.0-44.0); LYMPHOCYTE # 0.9 TH/MM3 (1.0-4.8); MEAN CELL VOLUME 93.1 FL (80.0-100.0); MEAN CORPUSCULAR HEMOGLOBIN 31.5 PG (27.0-34.0); MEAN CORPUSCULAR HGB CONC 33.9 % (32.0-36.0); MONO % 12.9 % (0.0-8.0); NEUT % 70.3 % (16.0-70.0); PLATELET COUNT 290 TH/MM3 (150-450); RED BLOOD COUNT 2.89 MIL/MM3 (4.50-5.90); WHITE BLOOD COUNT 7.5 TH/MM3 (4.0-11.0)
[2017-03-23 04:03] LABS: HEMO FLAGS AUTO DIFF
[2017-03-23 04:15] LABS: ALT (GPT) 57 U/L (12-78)
[2017-03-23 04:17] LABS: ALKALINE PHOSPHATASE 52 U/L (45-117); TOTAL BILIRUBIN ADULT 1.2 MG/DL (0.2-1.0)
[2017-03-23 04:18] LABS: ANION GAP 7 MEQ/L (5-15); AST (GOT) 50 U/L (15-37); BICARBONATE 28.1 MEQ/L (21.0-32.0); BLOOD UREA NITROGEN 21 MG/DL (7-18); CHLORIDE 100 MEQ/L (98-107); GLOMERULAR FILTRATION RATE 89 ML/MIN (>89); SODIUM (NA) 135 MEQ/L (136-145)
[2017-03-23] MEDS: METHOCARBAMOL 500 MG TAB PO SCH ×3 (06:32→21:23)
--- NOTE | 2017-03-23 06:35 | RADRPT ---
EXAM DATE/TIME: 03/23/2017 06:06 [facility] COMPARISON: CHEST SINGLE AP, March 22, 2017, 2:59. INDICATIONS : Chest trauma. Right side chest tube. MEDICAL HISTORY : Cardiovascular disease. Hypertension SURGICAL HISTORY : Chest tube, right. ENCOUNTER: Subsequent ACUITY: 1 week PAIN SCORE: 4/10 LOCATION: Bilateral chest FINDINGS: Right chest tube remains in place. Small, ill-defined basilar pneumothorax appears smaller. There is right base atelectasis not significantly changed. There is basilar consolidation on the left, likely partly but not entirely technique related. Mild cardiomegaly is unchanged. CONCLUSION: 1. Unchanged pneumothorax and stable atelectasis of the right base. Right chest tube remains in place . 2. Basilar consolidation developing on the left. Aleksandr Garcia MD on March 23, 2017 at 6:32 Board Certified Radiologist. This report was verified electronically.
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
[2017-03-23 08:19] LABS: BANDS 5 % (0-6); BLASTS 1 % (0-0); EOSINOPHILS 3 % (0-4); MYELOCYTES 1 % (0-0); NEUTROPHIL # MANUAL DIFF 6.1 TH/MM3 (1.8-7.7); POLYS (SEG NEUTROPHILS) 75 % (16-70); WBC DIFF SAMPLE 100
[2017-03-23 08:20] LABS: PLATELET ESTIMATE SMEAR NORMAL (NORMAL); PLATELET MORPHOLOGY NORMAL (NORMAL); SCAN/DIFF FINAL DIFF MANUAL
[2017-03-23] MEDS: BACITRACIN TOP OINT 15 GM TUBE TOPICAL SCH ×2 (09:00→21:00)
[2017-03-23] MEDS: FAMOTIDINE 20 MG TAB PO SCH ×2 (09:00→21:23)
[2017-03-23] MEDS: DOCUSATE SODIUM 50 MG/SENNA 8.6 MG TAB PO SCH ×2 (09:23→21:23)
[2017-03-23] MEDS: FUROSEMIDE 20 MG TAB PO SCH (09:23)
[2017-03-23] MEDS: ENOXAPARIN SODIUM 30 MG/0.3 ML SYRINGE SQ SCH ×2 (09:23→21:23)
[2017-03-23] MEDS: DULoxetine HCl DR 30 MG CAP PO SCH ×2 (09:24→21:23)
[2017-03-23] MEDS: POLYETHYLENE GLYCOL 17 GM PKG PO SCH (09:24)
[2017-03-23] MEDS: SODIUM CHLORIDE 0.9% FLUSH 10 ML FLUSH SCH ×2 (09:25→21:00)
[2017-03-23] MEDS: LIDOCAINE HCL 5% PATCH T-DERMAL SCH (09:26)
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
[2017-03-23] MEDS: RESP: ALBUTEROL 2.5 MG/IPRATROPIUM 0.5 MG NEB (SCH) NEB (20:29)
[2017-03-23] MEDS: REMOVE OLD LIDOCAINE PATCH T-DERMAL SCH (21:00)
[2017-03-23] MEDS: SODIUM CHLOR 0.9% 1000 ML INJ 1,000 ML IV SCH (21:06)
[2017-03-23] MEDS: chlordiazePOXIDE 25 MG CAP PO PRN (22:38)
[2017-03-24] VITALS: BP 120/73; PULSE 82; RESP 15; TEMP 97.5; O2SAT 92
[2017-03-24] MEDS: METOPROLOL TARTRATE 50 MG TAB PO SCH ×4 (00:24→18:10)
[2017-03-24 04:00] VITALS: BP 140/73; PULSE 84; RESP 16; TEMP 97.1; O2SAT 93
[2017-03-24] MEDS: METHOCARBAMOL 500 MG TAB PO SCH ×3 (05:25→21:42)
--- NOTE | 2017-03-24 07:21 | RADRPT ---
EXAM DATE/TIME: 03/24/2017 06:27 [facility] COMPARISON: CHEST SINGLE AP, March 23, 2017, 6:06. INDICATIONS : Short of breath, evaluate chest tube and pneumothorax MEDICAL HISTORY : pneumothorax SURGICAL HISTORY : chest tube ENCOUNTER: Subsequent ACUITY: 1 week PAIN SCORE: 4/10 LOCATION: Right chest FINDINGS: A single view of the chest demonstrates a right chest tube with small right apical pneumothorax. Airs pace disease at the bases is stable since March 23. Cardiomegaly. No left pneumothorax. CONCLUSION: 1. Right chest tube with tiny right apical pneumothorax. Stable basilar airspace disease. Marcos Bhakta MD on March 24, 2017 at 7:18 Board Certified Radiologist. This report was verified electronically.
[2017-03-24 08:00] VITALS: BP 120/80; PULSE 74; RESP 18; TEMP 97.9; O2SAT 95
[2017-03-24] MEDS: RESP: ALBUTEROL 2.5 MG/IPRATROPIUM 0.5 MG NEB (SCH) NEB ×3 (08:00→20:04)
[2017-03-24] MEDS: DULoxetine HCl DR 30 MG CAP PO SCH ×2 (08:51→19:51)
[2017-03-24] MEDS: FUROSEMIDE 20 MG TAB PO SCH (08:51)
[2017-03-24] MEDS: FAMOTIDINE 20 MG TAB PO SCH ×2 (08:51→19:51)
[2017-03-24] MEDS: DOCUSATE SODIUM 50 MG/SENNA 8.6 MG TAB PO SCH ×2 (08:51→19:51)
[2017-03-24] MEDS: BACITRACIN TOP OINT 15 GM TUBE TOPICAL SCH ×2 (08:52→19:53)
[2017-03-24] MEDS: LIDOCAINE HCL 5% PATCH T-DERMAL SCH (08:52)
[2017-03-24] MEDS: ENOXAPARIN SODIUM 30 MG/0.3 ML SYRINGE SQ SCH ×2 (08:52→19:50)
[2017-03-24] MEDS: SODIUM CHLORIDE 0.9% FLUSH 10 ML FLUSH SCH ×2 (09:00→19:52)
[2017-03-24] MEDS: POLYETHYLENE GLYCOL 17 GM PKG PO SCH (09:00)
[2017-03-24] MEDS ORDERED: IOHEXOL 350 MG/ML 10 ML VIAL (for RAD DIAG) IVCONTRAST ONE (09:36)
--- NOTE | 2017-03-24 09:45 | RADRPT ---
EXAM DATE/TIME: 03/24/2017 09:13 [facility] COMPARISON: CT PELVIS W CONTRAST, March 16, 2017, 22:46. INDICATIONS : Evaluate for bladder leak. IV CONTRAST: 30 cc Omnipaque 350 (iohexol) IV ORAL CONTRAST: No oral contrast ingested. RADIATION DOSE: 15.46 CTDIvol (mGy) MEDICAL HISTORY : Cardiovascular disease. Hypertension. SURGICAL HISTORY : None. ENCOUNTER: Initial ACUITY: 1 day PAIN SCALE: 0/10 LOCATION: pelvis TECHNIQUE: Volumetric scanning of the pelvis was performed. Using automated exposure control and adjustment of t he mA and/or kV according to patient size, radiation dose was kept as low as reasonably achievable to obtain optimal diagnostic quality images. DICOM format image data is available electronically for review and comparison. FINDINGS: BOWEL/MESENTERY: The visualized small and large bowel demonstrate no acute abnormality. There is no free fluid. BLADDER: There is no wall thickening or mass. The previously noted area of leakage from the upper bladder is n o longer present. There is no extravasated contrast identified. A Ford catheter remains in place. Th ere is minimal gas in the anterior bladder. RETROPERITONEUM: There is no aneurysm or lymphadenopathy. REPRODUCTIVE: Within normal limits. INGUINAL: There is no lymphadenopathy or hernia. MUSCULOSKELETAL: There is a new high density hematoma involving the right rectus abdominis muscle measuring up to 7.9 x 3.4 cm in diameter. CONCLUSION: 1. The bladder is now intact. The previously noted bladder rupture is no longer visualized. 2. Hematoma in the right rectus abdominis muscle which is new from the prior study. Lopez Sam MD on March 24, 2017 at 9:40 Board Certified Radiologist. This report was verified electronically.
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
[2017-03-24] MEDS: ACETAMINOPHEN/HYDROcodone 325 MG/5 MG TAB PO PRN (15:41)
[2017-03-24 16:32] VITALS: BP 113/70; PULSE 80; RESP 22; TEMP 97.9; O2SAT 93
[2017-03-24 16:42] VITALS: O2SAT 93
[2017-03-24] MEDS: traZODone HCL 50 MG TAB PO SCH (19:51)
[2017-03-24] MEDS: SODIUM CHLOR 0.9% 1000 ML INJ 1,000 ML IV SCH (19:53)
[2017-03-24] MEDS: REMOVE OLD LIDOCAINE PATCH T-DERMAL SCH (19:53)
[2017-03-24 20:09] VITALS: BP 111/68; PULSE 74; RESP 17; TEMP 97.1; O2SAT 96
[2017-03-24] MEDS: CHLORHEXIDINE GLUCONATE 2 % 1 PACK (2 CLOTHS) TOP SCH (22:48)
[2017-03-25] VITALS (7 sets, daily range): BP systolic 100–126; BP diastolic 56–73; PULSE 74–93; RESP 16–17; TEMP 96.4–98.7; O2SAT 94–98
[2017-03-25] MEDS: METOPROLOL TARTRATE 50 MG TAB PO SCH ×4 (00:09→17:33)
[2017-03-25] MEDS: METHOCARBAMOL 500 MG TAB PO SCH ×3 (05:15→21:01)
[2017-03-25 06:57] LABS: AUTOMATED NEUTROPHIL # 5.5 TH/MM3 (1.8-7.7); BASOPHIL # 0.1 TH/MM3 (0-0.2); BASOPHIL % 0.7 % (0.0-2.0); EOSINOPHIL # 0.4 TH/MM3 (0-0.4); EOSINOPHIL % 4.7 % (0.0-4.0); HEMATOCRIT 28.1 % (39.0-51.0); HEMO FLAGS DIFF FINAL; LYMPH % 12.3 % (9.0-44.0); LYMPHOCYTE # 0.9 TH/MM3 (1.0-4.8); MEAN CELL VOLUME 93.3 FL (80.0-100.0); MEAN CORPUSCULAR HEMOGLOBIN 32.1 PG (27.0-34.0); MEAN CORPUSCULAR HGB CONC 34.5 % (32.0-36.0); MONO % 9.6 % (0.0-8.0); NEUT % 72.7 % (16.0-70.0); PLATELET COUNT 310 TH/MM3 (150-450); RED BLOOD COUNT 3.02 MIL/MM3 (4.50-5.90); RED CELL DISTRIBUTION WIDTH 13.5 % (11.6-17.2); WHITE BLOOD COUNT 7.5 TH/MM3 (4.0-11.0)
[2017-03-25 07:27] LABS: POTASSIUM 3.7 MEQ/L (3.5-5.1)
[2017-03-25] MEDS: DULoxetine HCl DR 30 MG CAP PO SCH ×2 (08:35→21:01)
[2017-03-25] MEDS: DOCUSATE SODIUM 50 MG/SENNA 8.6 MG TAB PO SCH ×2 (08:35→21:01)
[2017-03-25] MEDS: FAMOTIDINE 20 MG TAB PO SCH ×2 (08:35→21:01)
[2017-03-25] MEDS: FUROSEMIDE 20 MG TAB PO SCH (08:36)
[2017-03-25] MEDS: SODIUM CHLORIDE 0.9% FLUSH 10 ML FLUSH SCH ×2 (08:37→21:00)
[2017-03-25] MEDS: ENOXAPARIN SODIUM 30 MG/0.3 ML SYRINGE SQ SCH ×2 (08:37→21:00)
[2017-03-25] MEDS: LIDOCAINE HCL 5% PATCH T-DERMAL SCH (08:38)
[2017-03-25] MEDS: POLYETHYLENE GLYCOL 17 GM PKG PO SCH (08:39)
[2017-03-25] MEDS: RESP: ALBUTEROL 2.5 MG/IPRATROPIUM 0.5 MG NEB (SCH) NEB ×3 (08:56→20:09)
[2017-03-25] MEDS: BACITRACIN TOP OINT 15 GM TUBE TOPICAL SCH ×2 (09:00→21:00)
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
[2017-03-25 12:07] LABS: HEMOGLOBIN A1a 0.8 %; HEMOGLOBIN A1b 1.4 %; HEMOGLOBIN Ao 87.3 %; HEMOGLOBIN P3 4.5 %
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
[2017-03-25] MEDS: REMOVE OLD LIDOCAINE PATCH T-DERMAL SCH (21:00)
[2017-03-25] MEDS: traZODone HCL 50 MG TAB PO SCH (21:01)
[2017-03-25] MEDS: SODIUM CHLOR 0.9% 1000 ML INJ 1,000 ML IV SCH (21:04)
[2017-03-25] MEDS: CHLORHEXIDINE GLUCONATE 2 % 1 PACK (2 CLOTHS) TOP SCH (23:48)
[2017-03-26] VITALS (7 sets, daily range): BP systolic 103–137; BP diastolic 64–75; PULSE 72–92; RESP 16–19; TEMP 95.9–96.8; O2SAT 94–98
[2017-03-26] MEDS: METOPROLOL TARTRATE 50 MG TAB PO SCH ×5 (00:09→23:44)
[2017-03-26] MEDS: ACETAMINOPHEN/HYDROcodone 325 MG/5 MG TAB PO PRN ×2 (00:09→21:28)
[2017-03-26] MEDS: METHOCARBAMOL 500 MG TAB PO SCH ×3 (06:08→21:23)
--- NOTE | 2017-03-26 06:43 | RADRPT ---
EXAM DATE/TIME: 03/26/2017 05:00 [facility] COMPARISON: CHEST SINGLE AP, March 24, 2017, 6:27. INDICATIONS : Short of breath. MEDICAL HISTORY : Pnemonia, Cardiovascular disease. Hypertension. SURGICAL HISTORY : Chest tube. ENCOUNTER: Subsequent ACUITY: 1 week PAIN SCORE: 0/10 LOCATION: Bilateral chest FINDINGS: A single portable frontal view of the chest shows a right thoracostomy tube. No pneumothorax. Bibasil ar consolidations are unchanged. Heart is mildly enlarged. No effusions. CONCLUSION: 1. No pneumothorax. 2. Unchanged bibasilar infiltrates. Montana Goins Jr., MD on March 26, 2017 at 6:41 Board Certified Radiologist. This report was verified electronically.
[2017-03-26] MEDS: RESP: ALBUTEROL 2.5 MG/IPRATROPIUM 0.5 MG NEB (SCH) NEB (08:49)
[2017-03-26] MEDS: BACITRACIN TOP OINT 15 GM TUBE TOPICAL SCH ×2 (09:00→21:24)
[2017-03-26] MEDS: SODIUM CHLORIDE 0.9% FLUSH 10 ML FLUSH SCH ×2 (09:00→21:23)
[2017-03-26] MEDS: POLYETHYLENE GLYCOL 17 GM PKG PO SCH (09:00)
[2017-03-26] MEDS: DULoxetine HCl DR 30 MG CAP PO SCH ×2 (09:52→21:23)
[2017-03-26] MEDS: ENOXAPARIN SODIUM 30 MG/0.3 ML SYRINGE SQ SCH ×2 (09:52→21:24)
[2017-03-26] MEDS: FUROSEMIDE 20 MG TAB PO SCH (09:52)
[2017-03-26] MEDS: DOCUSATE SODIUM 50 MG/SENNA 8.6 MG TAB PO SCH ×2 (09:53→21:23)
[2017-03-26] MEDS: FAMOTIDINE 20 MG TAB PO SCH ×2 (09:53→21:23)
[2017-03-26] MEDS: LIDOCAINE HCL 5% PATCH T-DERMAL SCH (09:53)
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
[2017-03-26] MEDS: SODIUM CHLOR 0.9% 1000 ML INJ 1,000 ML IV SCH (21:06)
[2017-03-26] MEDS: traZODone HCL 50 MG TAB PO SCH (21:24)
[2017-03-26] MEDS: REMOVE OLD LIDOCAINE PATCH T-DERMAL SCH (21:32)
[2017-03-26] MEDS: RESP: ALBUTEROL 2.5 MG/IPRATROPIUM 0.5 MG NEB (PRN) INH (22:43)
[2017-03-27] MEDS: CHLORHEXIDINE GLUCONATE 2 % 1 PACK (2 CLOTHS) TOP SCH (03:54)
[2017-03-27 03:56] VITALS: BP 120/78; PULSE 89; RESP 18; TEMP 96.7; O2SAT 99
[2017-03-27] MEDS: METHOCARBAMOL 500 MG TAB PO SCH ×3 (05:37→22:16)
[2017-03-27] MEDS: METOPROLOL TARTRATE 50 MG TAB PO SCH ×3 (05:37→18:27)
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
[2017-03-27 08:00] VITALS: BP 110/66; PULSE 72; RESP 18; TEMP 96.4; O2SAT 96
[2017-03-27] MEDS: BACITRACIN TOP OINT 15 GM TUBE TOPICAL SCH ×2 (09:00→22:19)
[2017-03-27] MEDS: SODIUM CHLORIDE 0.9% FLUSH 10 ML FLUSH SCH ×2 (09:00→22:15)
[2017-03-27] MEDS: POLYETHYLENE GLYCOL 17 GM PKG PO SCH (09:00)
[2017-03-27] MEDS: LIDOCAINE HCL 5% PATCH T-DERMAL SCH (09:47)
[2017-03-27] MEDS: DULoxetine HCl DR 30 MG CAP PO SCH ×2 (09:47→22:16)
[2017-03-27] MEDS: ENOXAPARIN SODIUM 30 MG/0.3 ML SYRINGE SQ SCH ×2 (09:47→22:16)
[2017-03-27] MEDS: FAMOTIDINE 20 MG TAB PO SCH ×2 (09:47→22:18)
[2017-03-27] MEDS: FUROSEMIDE 20 MG TAB PO SCH (09:47)
[2017-03-27] MEDS: DOCUSATE SODIUM 50 MG/SENNA 8.6 MG TAB PO SCH ×2 (09:48→22:15)
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
[2017-03-27 12:00] VITALS: BP 132/86; PULSE 87; RESP 20; TEMP 96.7; O2SAT 96
[2017-03-27] MEDS ORDERED: SENN1TAB PO (12:44)
[2017-03-27 16:00] VITALS: BP 102/60; PULSE 82; RESP 16; TEMP 96.2; O2SAT 98
[2017-03-27 20:55] VITALS: BP 114/72; PULSE 79; RESP 17; TEMP 96.3; O2SAT 98
[2017-03-27] MEDS: SODIUM CHLOR 0.9% 1000 ML INJ 1,000 ML IV SCH (21:06)
[2017-03-27] MEDS: traZODone HCL 50 MG TAB PO SCH (22:15)
[2017-03-27] MEDS: ACETAMINOPHEN/HYDROcodone 325 MG/5 MG TAB PO PRN (22:16)
[2017-03-27] MEDS: REMOVE OLD LIDOCAINE PATCH T-DERMAL SCH (22:20)
[2017-03-28 00:16] VITALS: BP 100/63; PULSE 80; RESP 17; TEMP 96.2; O2SAT 96
[2017-03-28] MEDS: CHLORHEXIDINE GLUCONATE 2 % 1 PACK (2 CLOTHS) TOP SCH (02:00)
[2017-03-28 04:00] VITALS: BP 107/69; PULSE 85; RESP 17; TEMP 96.7; O2SAT 96
--- NOTE | 2017-03-28 06:10 | RADRPT ---
EXAM DATE/TIME: 03/28/2017 05:14 [facility] COMPARISON: CHEST SINGLE AP, March 27, 2017, 4:56. INDICATIONS : Follow up chest tube removal MEDICAL HISTORY : Cardiovascular disease. Hypertension SURGICAL HISTORY : None. ENCOUNTER: Subsequent ACUITY: 1 week PAIN SCORE: 0/10 LOCATION: Bilateral chest FINDINGS: There has been removal of right thoracostomy tube. There is no evidence of pneumothorax. There is per sistent patchy right lung parenchymal opacity and consolidative change in the left base. Cardiac cont ours are stable. CONCLUSION: Right thoracostomy tube removed without pneumothorax. Aleksandr Daley MD on March 28, 2017 at 6:08 Board Certified Radiologist. This report was verified electronically.
[2017-03-28] MEDS: METOPROLOL TARTRATE 50 MG TAB PO SCH ×3 (06:45→12:00)
[2017-03-28] MEDS: METHOCARBAMOL 500 MG TAB PO SCH (06:45)
[2017-03-28 07:59] VITALS: BP 109/68; PULSE 76; RESP 18; TEMP 96.7; O2SAT 97
[2017-03-28] MEDS: POLYETHYLENE GLYCOL 17 GM PKG PO SCH (09:00)
[2017-03-28] MEDS: DOCUSATE SODIUM 50 MG/SENNA 8.6 MG TAB PO SCH (09:00)
[2017-03-28] MEDS: SODIUM CHLORIDE 0.9% FLUSH 10 ML FLUSH SCH (09:00)
[2017-03-28] MEDS: BACITRACIN TOP OINT 15 GM TUBE TOPICAL SCH (09:00)
[2017-03-28] MEDS: FUROSEMIDE 20 MG TAB PO SCH (10:16)
[2017-03-28] MEDS: DULoxetine HCl DR 30 MG CAP PO SCH (10:16)
[2017-03-28] MEDS: FAMOTIDINE 20 MG TAB PO SCH (10:16)
[2017-03-28] MEDS: ENOXAPARIN SODIUM 30 MG/0.3 ML SYRINGE SQ SCH (10:19)
[2017-03-28] MEDS: LIDOCAINE HCL 5% PATCH T-DERMAL SCH (10:19)
[2017-03-28 11:43] VITALS: BP 94/63; PULSE 84; RESP 18; TEMP 95.8; O2SAT 97
[2017-03-28] MEDS ORDERED: HYDR-3583 PO (13:20)
[2017-03-28] MEDS ORDERED: METO-309 PO (13:20)
[2017-03-28] MEDS ORDERED: DULO1CAP2 PO (13:20)
[2017-03-28] MEDS ORDERED: HYDR-3516 PO (13:30)
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
== END 2017-03-28 15:28 | disposition home or self-care (01) | DRG 963 ==
LOC: NEPI 00:54 → NEDA 01:54 → EDBD 01:54 → N03A 03:31 → N06B 03-22 17:11
PROVIDERS: ADMIT Surgery; ATTEND Surgery
PROC: 0W9930Z Drainage of Right Pleural Cavity with Drainage Device, Percutaneous Approach (ICD-10-PCS; principal; 2017-03-20)
PROC: 5A09357 Assistance with Respiratory Ventilation, Less than 24 Consecutive Hours, Continuous Positive Airway Pressure (ICD-10-PCS; 2017-03-20)
DX: S27.321A Contusion of lung, unilateral, initial encounter (principal); J96.01 Acute respiratory failure with hypoxia; S37.29XA Other injury of bladder, initial encounter; S27.2XXA Traumatic hemopneumothorax, initial encounter; S32.019A Unspecified fracture of first lumbar vertebra, initial encounter for closed fracture; J90 Pleural effusion, not elsewhere classified; S22.43XA Multiple fractures of ribs, bilateral, initial encounter for closed fracture; S22.20XA Unspecified fracture of sternum, initial encounter for closed fracture; S32.029A Unspecified fracture of second lumbar vertebra, initial encounter for closed fracture; Q23.1 Congenital insufficiency of aortic valve; S27.892A Contusion of other specified intrathoracic organs, initial encounter; S20.219A Contusion of unspecified front wall of thorax, initial encounter; I10 Essential (primary) hypertension; R31.9 Hematuria, unspecified; G47.00 Insomnia, unspecified; V43.52XA Car driver injured in collision with other type car in traffic accident, initial encounter; Y92.410 Unspecified street and highway as the place of occurrence of the external cause; Z85.828 Personal history of other malignant neoplasm of skin
CPT/HCPCS: 70450; 71010; 71260; 72125; 72170; 72193; 73600; 74177; 80048; 80053; 80307; 82435; 82550; 82552; 82565; 82947; 83036; 83735; 84100; 84132; 84295; 84520; 85007; 85014; 85018; 85025; 85027; 85610; 85730; 86850; 86900; 86901; 87641; 90471; 90715; 93005; 93306; 93880; 94002; 94003; 94150; 94640; 94664; 94667; 94668; 96374; 99291; C9113; G0390; J0131; J0690; J1170; J1650; J1940; J2270; J2405; J3411; J3475; J7030; J7040; Q9967